=== PATIENT | male | born 1995 | race Caucasian/White ===

== ENCOUNTER → 2022-09-12 15:50 | Outpatient (BNVA) | payer MEDICAID, SELFPAY | PROVIDERS: Visit Provider Urology | DX: N47.1 Phimosis (principal) | CPT/HCPCS: 99212 ==

== ENCOUNTER → 2023-02-27 14:11 | Outpatient (BNVA) | payer OTHER, SELFPAY | PROVIDERS: Visit Provider Urology | DX: N47.1 Phimosis (principal); L64.9 Androgenic alopecia, unspecified | CPT/HCPCS: 99212 ==

== ENCOUNTER 2024-03-11 11:45 | Outpatient (AMB) | payer MEDICAID, SELFPAY ==
--- NOTE | 2024-03-11 11:51 | MHC.OFFVIS ---
Intake Visit Reasons: 6m follow up(phimosis) Allergies No Known Allergies Allergy (Verified 02/27/23 14:25) Medication List - Last Reconciled 03/11/24 by Fortino Downing MD betamethasone dipropionate 0.05% 1 appl topical BID minoxidil 5 mg (2 x 2.5 mg) PO DAILY 90 days HPI Comments Details: Amy is a pleasant male. He is seen for following urologic conditions - phimosis - male pattern baldness Improvement Again discussed reducing use of body wash in soap on penile glans Betamethasone prescribed P.r.n. 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 Does cause mild social anxiety Initial assessment - [place] 3 vertex pattern Phimosis Longstanding Mostly irritation on retraction of penis On examination has cuboidal change on glans Consistent with over exposure to soap Prescribed betamethasone thin coat 2 times daily [facility] Medical History (Updated 02/27/23 @ 14:51 by Fortino Downing MD) Anxiety disorder Review of Systems Const Denies chills and Denies fever(s) Card Reports no additional complaints and Denies syncope Resp Denies cough GI Denies abdominal pain and Denies heartburn Reports as per HPI and Denies change in libido Neuro Denies syncope Psych Denies change in libido Endo Denies change in libido Physical Exam Const General: cooperative, healthy appearing, comfortable and no acute distress Orientation/consciousness: patient oriented x3 HEENT Face and sinus: Yes normal facial exam Mouth: moist mucous membranes Neck Neck: Yes normal visual inspection, Yes full ROM and Yes trachea midline Chest Chest palpation & inspection: normal inspection of the chest Resp Effort & Inspection: normal respiratory effort, able to speak in complete sentences and no respiratory distress GI Inspection: Yes normal to inspection Back/Spine/Pelvis Cervical Spine: normal cervical lordosis Thoracic/Lumbar Spine: thoracic and lumbar spine normal to inspection Skin General skin exam: no rashes or lesions noted Neuro General: patient oriented x3, gait normal, tone normal and moves all extremities Extrem General: Yes normal to inspection and Yes capillary refill normal Assessment & Plan Assessment & Plan (1) Phimosis of penis: Code(s): N47.1 - Phimosis Category: Medical (2) 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 follow-up Patient Instructions: Imaging studies, laboratory and physical exam results were discussed and reviewed in detail. No major barriers to patient understanding were identified. An opportunity to ask questions regarding the treatment plan was provided. All questions were answered. The patient expressed understanding and agreement with the above treatment plan. The patient is aware they should contact our office by phone for worsening of their current condition or the appearance of new urologic symptoms. Compliance is encouraged with any medications and followup testing that is ordered. It is a privilege to participate in the urologic care of your patient. If you have any questions or concerns regarding treatment for the above conditions, or other urologic issues, please do not hesitate to contact me. The office telephone contact is [phone]. This note is constructed using voice recognition software. While every effort has been made to ensure accuracy instructor kindergarten errors may have been included. Yours sincerely, Dr Fortino Downing MD, [facility] - Urology Providers of Expert, Compassionate Care for the Genitourinary System Coding Level of Care Code Est Pt Level 3 (64143) Diagnoses Phimosis of penis N47.1 Male pattern baldness L64.9
== END 2024-03-11 12:11 | disposition home or self-care (01) ==
PROVIDERS: PCP Family Medicine; Visit Provider Urology
DX: N47.1 Phimosis (principal); L64.9 Androgenic alopecia, unspecified
CPT/HCPCS: 99213

== ENCOUNTER → 2024-03-11 11:45 | Outpatient (BNVA) | payer MEDICAID, SELFPAY | PROVIDERS: PCP Family Medicine; Visit Provider Urology | DX: N47.1 Phimosis (principal); L64.9 Androgenic alopecia, unspecified | CPT/HCPCS: 99212 ==